=== PATIENT | female | born 1970 | race Two or more races ===

== ENCOUNTER 2020-10-15 06:46 | Emergency (ER) | payer OTHER ==
[~2020-10-15] VITALS: Ht 160 cm; Wt 77.1 kg
[~2020-10-15 06:46] MED LIST: INTESTINEX1 CAP PO; SEPTRA DS TABLE1 TAB PO; VALTREX1000 MG PO; ZANTAC150 MG PO; ZOVIRAX5 GM TP
[2020-10-15] MEDS ORDERED: LEVSIN/SL0.125 MG PO (15:31)
[2020-10-15] MEDS ORDERED: PEPCID AC20 MG PO (15:31)
== END 2020-10-15 15:57 | disposition home or self-care (01) ==
LOC: ER 06:46
DX: K29.70 Gastritis, unspecified, without bleeding (principal); R10.13 Epigastric pain